=== PATIENT | male | born 1990 | race Caucasian/White ===

== ENCOUNTER 2020-08-02 20:29 | Emergency (ER) | payer OTHER ==
[~2020-08-02] VITALS: Ht 180.3 cm; Wt 100.5 kg
[2020-08-02 20:29] VITALS: BP 142/69
[2020-08-02] MEDS ORDERED: HYDR-3363 PO (20:43)
[2020-08-02] MEDS ORDERED: PROZ20CA11 PO ×2 (20:43)
[2020-08-02] MEDS ORDERED: DEPA1TAB3 PO (20:43)
[2020-08-02] MEDS ORDERED: CALC1TAB30 PO (20:43)
--- NOTE | 2020-08-02 21:37 | REPVR ---
PROCEDURE INFORMATION: Exam: XR Left Tibia and Fibula Exam date and time: 08/02/2020 9:21 PM Age: 30 years old Clinical indication: Pain; Lower leg; Left; Additional info: Injury with pain and swelling TECHNIQUE: Imaging protocol: XR Left tibia and fibula. Views: 2 views. COMPARISON: No relevant prior studies available. FINDINGS: Bones/joints: Normal. No fracture. Soft tissues: Normal. IMPRESSION: Negative left tibia and fibula. Electronically signed by: Hemanth Colvin On 08/02/2020 21:36:51 PM
== END 2020-08-02 22:12 | disposition home or self-care (01) ==
LOC: M ED 20:29
DX: S80.12XA Contusion of left lower leg, initial encounter (principal); W20.8XXA Other cause of strike by thrown, projected or falling object, initial encounter; Y92.099 Unspecified place in other non-institutional residence as the place of occurrence of the external cause; Y93.9 Activity, unspecified; Y99.9 Unspecified external cause status; Z98.84 Bariatric surgery status; F17.200 Nicotine dependence, unspecified, uncomplicated; Z79.899 Other long term (current) drug therapy

== ENCOUNTER 2021-11-05 21:10 | Emergency (ER) | payer OTHER ==
[~2021-11-05] VITALS: Ht 180.3 cm; Wt 95.9 kg
[~2021-11-05 21:10] MED LIST: CALC1TAB30 PO; DEPA1TAB3 PO; HYDR-3363 PO; PROZ20CA11 PO
[2021-11-05 22:11] LABS: HEMOGLOBIN 15.6 g/dl (13.5-17.5); MEAN CORPUSCULAR HEMOGLOBIN 28.9 pg (27.0-33.0); MEAN CORPUSCULAR HGB CONC 32.5 g/dl (32.0-36.5); MEAN CORPUSCULAR VOLUME 89.1 fl (80.0-96.0); PLATELET COUNT, AUTOMATED 253 10^3/uL (150-450); RED BLOOD COUNT 5.39 10^6/uL (4.30-6.10); WHITE BLOOD COUNT 7.6 10^3/uL (4.0-10.0)
[2021-11-05 22:46] LABS: ACETAMINOPHEN LEVEL < 2.0 UG/ML (10.0-30.0); ALBUMIN 4.5 GM/DL (3.2-5.2); ALT/SGPT 25 U/L (12-78); BILIRUBIN,DIRECT 0.1 MG/DL (0.0-0.2); BILIRUBIN,TOTAL 0.5 MG/DL (0.2-1.0); BLOOD UREA NITROGEN 10 MG/DL (7-18); CALCIUM LEVEL 9.9 MG/DL (8.5-10.1); CARBON DIOXIDE LEVEL 28 MEQ/L (21-32); CHLORIDE LEVEL 106 MEQ/L (98-107); CREATININE FOR GFR 0.71 MG/DL (0.70-1.30); ETHYL ALCOHOL (ETHANOL) < 0.003 % (0.000-0.010); GLOMERULAR FILTRATION RATE > 60.0 (>60); GLUCOSE, FASTING 93 MG/DL (70-100); POTASSIUM SERUM 4.7 MEQ/L (3.5-5.1); SALICYLATE LEVEL < 1.7 MG/DL (5.0-30.0); SODIUM LEVEL 140 MEQ/L (136-145); TOTAL PROTEIN 8.5 GM/DL (6.4-8.2)
[2021-11-05 23:04] LABS: RSV AMPLIFICATION NEGATIVE (NEGATIVE)
[2021-11-05] MEDS ORDERED: VENL75TA2 PO (23:05)
[2021-11-05] MEDS ORDERED: SUCR1TA PO (23:06)
[2021-11-05] MEDS ORDERED: MISO100T22 PO (23:06)
[2021-11-06] MEDS ORDERED: CALC1TAB30 PO (00:14)
[2021-11-06] MEDS ORDERED: ERGO500029 PO (00:14)
[2021-11-06] MEDS ORDERED: GABA-282 PO (00:14)
[2021-11-06] MEDS ORDERED: MULT-40 PO (00:14)
[2021-11-06] MEDS ORDERED: HYDR-3363 PO (00:14)
[2021-11-06] MEDS ORDERED: VENL75CA47 PO (00:14)
[2021-11-06] MEDS ORDERED: DIVA500T94 PO (00:14)
[2021-11-06] MEDS ORDERED: HOME MED LIST COMPLETE! XX SCH (00:15)
[2021-11-06 03:54] LABS: AMPHETAMINES LEVEL URINE NEGATIVE (NEGATIVE); BARBITURATES URINE NEGATIVE (NEGATIVE); BENZODIAZEPINES URINE NEGATIVE (NEGATIVE); CANNABINOIDS URINE NEGATIVE (NEGATIVE); COCAINE METABOLITE URINE NEGATIVE (NEGATIVE); METHADONE URINE NEGATIVE (NEGATIVE); OPIATES URINE NEGATIVE (NEGATIVE); PHENCYCLIDINE URINE NEGATIVE (NEGATIVE)
[2021-11-06 08:05] LABS: VALPROIC ACID (DEPAKOTE) 105.7 UG/ML (50.0-100.0)
[2021-11-06] MEDS ORDERED: GABAPENTIN 300 MG CAP PO ONE (09:00)
[2021-11-06] MEDS: VENLAFAXINE **XR** 75MG CAPSULE PO SCH (09:39)
[2021-11-06] MEDS: MULTIVITAMINS/MINERALS THERAP 1 TAB PO SCH (09:39)
[2021-11-07] MEDS ORDERED: DIVALPROEX 500 MG TAB PO ONE (09:20)
[2021-11-07] MEDS: MULTIVITAMINS/MINERALS THERAP 1 TAB PO SCH (09:22)
[2021-11-07] MEDS: VENLAFAXINE **XR** 75MG CAPSULE PO SCH (09:22)
[2021-11-07 11:06] VITALS: BP 149/71
== END 2021-11-07 11:06 ==
LOC: M ED 21:10
DX: R45.851 Suicidal ideations (principal); F32.A Depression, unspecified; Z79.899 Other long term (current) drug therapy